=== PATIENT | male | born 1990 | race African-American/Black ===

== ENCOUNTER → 2023-08-14 | Emergency (ER) | payer SELFPAY ==
[~2023-08-14] VITALS: Ht 167.6 cm; Wt 79.0 kg
[~2023-08-14] MED LIST: CYCL5TAB MT; IBUP-2028 MT; KETOROLAC 30MG/ML VIAL IM ONE; LIDO700A15 TP; LIDOCAINE 5% PATCH TOP SCH
[2023-08-14 23:42] VITALS: O2SAT 100
[2023-08-15 01:28] VITALS: BP 112/89; PULSE 74; RESP 14; TEMP 98
== END ==
LOC: ER 23:21
DX: S39.012A Strain of muscle, fascia and tendon of lower back, initial encounter (principal); S16.1XXA Strain of muscle, fascia and tendon at neck level, initial encounter; X58.XXXA Exposure to other specified factors, initial encounter; Y93.89 Activity, other specified; Y92.89 Other specified places as the place of occurrence of the external cause; Y99.8 Other external cause status
CPT/HCPCS: 99283